=== PATIENT | male | born 1995 ===

== ENCOUNTER 2020-11-18 06:04 | Emergency (ER) | payer MEDICAID ==
[2020-11-18] MEDS ORDERED: Ondansetron 4 MG/2 ML SDV IVPUSH ONE ×2 (06:32→07:59)
[2020-11-18] MEDS ORDERED: Sodium Chloride 0.9% 1,000 ML IV ONE ×3 (06:32→12:03)
[2020-11-18] MEDS ORDERED: Insulin Regular, Human 100 Units/ML 3 ML Vial IV STA (06:33)
--- NOTE | 2020-11-18 06:40 | EDM.PDOC ---
<Hemant Gasca - Last Filed: 11/18/20 13:29> ED HPI GENERAL MEDICAL PROBLEM - General Chief Complaint: Diabetic Complaint Stated Complaint: DIABETIC COMPLAINT Time Seen by Provider: 11/18/20 06:16 - Related Data Allergies Allergy/AdvReac Type Severity Reaction Status Date / Time No Known Allergies Allergy Verified 11/18/20 06:18 Home Meds: Home Meds Insulin. 11/18/20 [History] Ondansetron [Zofran Odt] 8 mg PO Q6H PRN #8 tab.rapdis 11/18/20 [Rx] Course - Re-Assessments/Exams Free Text/Narrative Re-Assessment/Exam: 11/18/20 07:18 Assumed care at change of shift. I did going at visit with the patient briefly his nausea is improving not gone and overall he is feeling little bit better. Labs are all pending at this point. 11/18/20 07:28 Patient's pH came back at 7.18 this pattern is out of the metabolic acidosis. I did discuss this with the patient. I also asked the patient if he would stay in the hospital, and he said yes if absolutely necessary? 11/18/20 07:56 Patient's blood sugar is down to 220 we will continue to watch his potassium glucose and give fluids. We will hold off on an insulin drip at this point. 11/18/20 07:59 Patient still has some nausea. We will give another dose of Zofran I have updated him on what his blood sugars are doing. 11/18/20 09:29 His Accu-Chek is 175 11/18/20 12:25 Patient continues to improve. His lactic acid is dropped from 5.8-3.6 however his potassium went up a little bit from 4.6-4.9 we will stop the NS with 20 of K and bolus another liter of NS. Patient is resistant to staying in the hospital at this time I discussed the pros and cons but he really wants to try outpatient treatment. The patient's ketones are 4.8 still in the ketosis range but certainly at the upper end of this. 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 At this point his nausea is getting a little worse we will try him on a 8 mg Zofran ODT. 11/18/20 13:29 Patient is insistent on going home at this point he refuses last blood draw. He states he will car pick up driver some insulin and some test strips and he promises to return to the emergency room if he is not improving or certainly if he is getting worse. I will give him a prescription for Zofran. Departure - Departure Time of Disposition: 13:30 Disposition: Home, Self-Care 01 Clinical Impression: Poorly controlled type 1 diabetes mellitus, Diabetic ketoacidosis - Discharge Information Prescriptions: Ondansetron [Zofran Odt] 8 mg PO Q6H PRN #8 tab.rapdis PRN Reason: Nausea/Vomiting Instructions: Diabetic Ketoacidosis Referrals: PCP,None [Primary Care Provider] - Forms: ED Department Discharge Additional Instructions: Return to the emergency room with any questions problems or worsening symptoms. Push lots of fluids. For the next 24 hours keep your blood sugar less than 250. And then start working on tighter control. 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 You have been given a prescription for Zofran this is an antinausea medication take 1 every 6 hours as needed for nausea and vomiting it will absorb under your tongue so you do not have to worry about swallowing it. <Surjit Parker - Last Filed: 11/18/20 19:09> ED HPI GENERAL MEDICAL PROBLEM - General Source of Information: Reports: Patient, Family () History Limitations: Reports: No Limitations - History of Present Illness INITIAL COMMENTS - FREE TEXT/NARRATIVE: Mr. Hubbard is a 24-year-old gentleman with a past medical history significant for type 1 diabetes, with nausea and dry heaving after running out of his Novolin-N insulin (NPH insulin) yesterday morning. He states that he would ordinarily take Humalog and Lantus, but due to lack of insurance, he has been purchasing Novolin-N fpon-zmo-mhbtral. He states that he ordinarily takes about 30 units of NPH per day over 3 injections. He states that his Accu-Cheks are usually between 80 and 220, however, he ran out of test strips about 1 week ago, at which time his Accu-Chek was 195. Here in the ED, the patient is found to be mildly tachycardic at 104 bpm, otherwise, he is hemodynamically stable, afebrile, saturating 95% on room air. An Accu-Chek at triage was 324. Prior to this morning, the patient denies having a recent fever, chills, sore throat, ear pain, nasal or sinus congestion, cough, dyspnea, chest pain, palpitations, nausea, vomiting, constipation, diarrhea, abdominal pain, urinary symptoms, recent weight gain or weight loss, recent bloody bowel movements or black bowel movements, recent joint aches, headaches, or rashes. The patient does not have a PCP. He states that due to lack of health insurance, even if referred to a PCP, he would not be able to go. He has not received an influenza vaccine this season, and declined an offer to get one here in the ED. 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 ED EXAM GENERAL NO PERIP PULSE - Physical Exam Exam: See Below Exam Limited By: No Limitations General Appearance: Alert, WD/WN, Mild Distress (Dry heaved during my evaluation) Eye Exam: Bilateral Eye: EOMI, Normal Inspection Ears: Normal External Exam, Hearing Grossly Normal Nose: Normal Inspection Throat/Mouth: Normal Inspection, Normal Lips, Normal Voice, No Airway Compromise Head: Atraumatic, Normocephalic Neck: Normal Inspection, Full Range of Motion Respiratory/Chest: No Respiratory Distress, Lungs Clear, Normal Breath Sounds, No Accessory Muscle Use Cardiovascular: Normal Peripheral Pulses, No Edema, No Gallop, No JVD, No Murmur, No Rub, Tachycardia (regular) GI/Abdominal: Normal Bowel Sounds, Soft, Non-Tender, No Organomegaly, No Distention, No Abnormal Bruit, No Mass Back Exam: Normal Inspection, Full Range of Motion, NT Extremities: Normal Inspection, Normal Range of Motion, No Pedal Edema, Normal Capillary Refill Neurological: Alert, Oriented, Normal Cognition, No Motor/Sensory Deficits Psychiatric: Normal Affect Skin Exam: Warm, Dry, Intact, Normal Color, No Rash #1 Interpretation EKG Date: 11/18/20 Time: 06:40 Rhythm: Other (Sinus tachycardia) Rate (Beats/Min): 102 Brilliant: Normal P-Wave: Enlarged (LAE) QRS: Other (Late transition) ST-T: Normal QT: Normal Comparison: NA - No Prior EKG Course - Vital Signs Last Recorded V/S: Last Vital Signs Temp 36.2 C 11/18/20 06:15 Pulse 97 11/18/20 13:43 Resp 16 11/18/20 13:43 BP 124/57 L 11/18/20 13:43 Pulse Ox 98 11/18/20 13:43 - Orders/Labs/Meds Labs: Laboratory Tests 11/18/20 11/18/20 11/18/20 Range/Units 06:47 06:47 06:47 WBC 11.38 H (4.23-9.07) K/mm3 RBC 4.87 (4.63-6.08) M/mm3 Hgb 15.8 (13.7-17.5) gm/dl Hct 47.8 (40.1-51.0) % MCV 98.2 H (79.0-92.2) fl MCH 32.4 H (25.7-32.2) pg MCHC 33.1 (32.2-35.5) g/dl RDW Std Deviation 43.8 (35.1-43.9) fL Plt Count 306 (163-337) K/mm3 MPV 10.2 (9.4-12.3) fl Neutrophils % (Manual) 74 H (40-60) % Band Neutrophils % 0 (0-10) % Lymphocytes % (Manual) 21 (20-40) % Atypical Lymphs % 0 % Monocytes % (Manual) 4 (2-10) % Eosinophils % (Manual) 0 L (0.8-7.0) % Basophils % (Manual) 1 (0.2-1.2) Platelet Estimate Adequate RBC Morph Comment Normal Puncture Site ABG pH (7.35-7.45) ABG pCO2 (35.0-45.0) mmHg ABG pO2 (80.0-100.0) mmHg ABG HCO3 (22.0-26.0) meq/L ABG O2 Saturation (96.0-97.0) % ABG Base Excess (-2-2.0) Jona Test A-a Gradient mmHg O2 Delivery Device FiO2 (21.00-100.00) % Sodium 138 (136-145) mEq/L Potassium 4.6 (3.5-5.1) mEq/L Chloride 95 L (98-107) mEq/L Carbon Dioxide 17 L (21-32) mEq/L Anion Gap 30.6 H (5-15) BUN 18 (7-18) mg/dL Creatinine 1.3 (0.7-1.3) mg/dL Est Cr Clr Drug Dosing 80.51 mL/min Estimated GFR (MDRD) > 60 (>60) mL/min BUN/Creatinine Ratio 13.8 L (14-18) Glucose 340 H (74-106) mg/dL POC Glucose (70-105) mg/dL Lactic Acid 5.8 H* (0.4-2.0) mmol/L Calcium 9.2 (8.5-10.1) mg/dL Magnesium 1.9 (1.8-2.4) mg/dl Total Bilirubin 0.4 (0.2-1.0) mg/dL AST 66 H (15-37) U/L ALT 55 (16-63) U/L Alkaline Phosphatase 130 H (46-116) U/L Total Protein 8.7 H (6.4-8.2) g/dl Albumin 5.2 H (3.4-5.0) g/dl Globulin 3.5 gm/dL Albumin/Globulin Ratio 1.5 (1-2) Urine Color (Yellow) Urine Appearance (Clear) Urine pH (5.0-8.0) Ur Specific [place] (1.005-1.030) Urine Protein (Negative) Urine Glucose (UA) (Negative) Urine Ketones (Negative) Urine Occult Blood (Negative) Urine Nitrite (Negative) Urine Bilirubin (Negative) Urine Urobilinogen (0.2-1.0) Ur Leukocyte Esterase (Negative) Urine RBC (0-5) /hpf Urine WBC (0-5) /hpf Ur Epithelial Cells (0-5) /hpf Urine Bacteria (FEW) /hpf Urine Mucus (FEW) /hpf Ketones (0.0-0.3) mM 11/18/20 11/18/2021 Range/Units 06:47 07:05 07:53 WBC (4.23-9.07) K/mm3 RBC (4.63-6.08) M/mm3 Hgb (13.7-17.5) gm/dl Hct (40.1-51.0) % MCV (79.0-92.2) fl MCH (25.7-32.2) pg MCHC (32.2-35.5) g/dl RDW Std Deviation (35.1-43.9) fL Plt Count (163-337) K/mm3 MPV (9.4-12.3) fl Neutrophils % (Manual) (40-60) % Band Neutrophils % (0-10) % Lymphocytes % (Manual) (20-40) % Atypical Lymphs % % Monocytes % (Manual) (2-10) % Eosinophils % (Manual) (0.8-7.0) % Basophils % (Manual) (0.2-1.2) Platelet Estimate RBC Morph Comment Puncture Site Rt radial ABG pH 7.18 L* (7.35-7.45) ABG pCO2 34.9 L (35.0-45.0) mmHg ABG pO2 95.0 (80.0-100.0) mmHg ABG HCO3 12.5 L (22.0-26.0) meq/L ABG O2 Saturation 94.2 L (96.0-97.0) % ABG Base Excess -14.9 L (-2-2.0) Jona Test Positive A-a Gradient 11 mmHg O2 Delivery Device Room air FiO2 21.00 (21.00-100.00) % Sodium (136-145) mEq/L Potassium (3.5-5.1) mEq/L Chloride (98-107) mEq/L Carbon Dioxide (21-32) mEq/L Anion Gap (5-15) BUN (7-18) mg/dL Creatinine (0.7-1.3) mg/dL Est Cr Clr Drug Dosing mL/min Estimated GFR (MDRD) (>60) mL/min BUN/Creatinine Ratio (14-18) Glucose (74-106) mg/dL POC Glucose 221 H (70-105) mg/dL Lactic Acid (0.4-2.0) mmol/L Calcium (8.5-10.1) mg/dL Magnesium (1.8-2.4) mg/dl Total Bilirubin (0.2-1.0) mg/dL AST (15-37) U/L ALT (16-63) U/L Alkaline Phosphatase (46-116) U/L Total Protein (6.4-8.2) g/dl Albumin (3.4-5.0) g/dl Globulin gm/dL Albumin/Globulin Ratio (1-2) Urine Color (Yellow) Urine Appearance (Clear) Urine pH (5.0-8.0) Ur Specific [place] (1.005-1.030) Urine Protein (Negative) Urine Glucose (UA) (Negative) Urine Ketones (Negative) Urine Occult Blood (Negative) Urine Nitrite (Negative) Urine Bilirubin (Negative) Urine Urobilinogen (0.2-1.0) Ur Leukocyte Esterase (Negative) Urine RBC (0-5) /hpf Urine WBC (0-5) /hpf Ur Epithelial Cells (0-5) /hpf Urine Bacteria (FEW) /hpf Urine Mucus (FEW) /hpf Ketones 4.85 (0.0-0.3) mM 11/18/20 11/18/20 11/18/20 Range/Units 09:18 10:04 10:04 WBC (4.23-9.07) K/mm3 RBC (4.63-6.08) M/mm3 Hgb (13.7-17.5) gm/dl Hct (40.1-51.0) % MCV (79.0-92.2) fl MCH (25.7-32.2) pg MCHC (32.2-35.5) g/dl RDW Std Deviation (35.1-43.9) fL Plt Count (163-337) K/mm3 MPV (9.4-12.3) fl Neutrophils % (Manual) (40-60) % Band Neutrophils % (0-10) % Lymphocytes % (Manual) (20-40) % Atypical Lymphs % % Monocytes % (Manual) (2-10) % Eosinophils % (Manual) (0.8-7.0) % Basophils % (Manual) (0.2-1.2) Platelet Estimate RBC Morph Comment Puncture Site ABG pH (7.35-7.45) ABG pCO2 (35.0-45.0) mmHg ABG pO2 (80.0-100.0) mmHg ABG HCO3 (22.0-26.0) meq/L ABG O2 Saturation (96.0-97.0) % ABG Base Excess (-2-2.0) Jona Test A-a Gradient mmHg O2 Delivery Device FiO2 (21.00-100.00) % Sodium (136-145) mEq/L Potassium 4.9 (3.5-5.1) mEq/L Chloride (98-107) mEq/L Carbon Dioxide (21-32) mEq/L Anion Gap (5-15) BUN (7-18) mg/dL Creatinine (0.7-1.3) mg/dL Est Cr Clr Drug Dosing mL/min Estimated GFR (MDRD) (>60) mL/min BUN/Creatinine Ratio (14-18) Glucose (74-106) mg/dL POC Glucose (70-105) mg/dL Lactic Acid 3.6 H* (0.4-2.0) mmol/L Calcium (8.5-10.1) mg/dL Magnesium (1.8-2.4) mg/dl Total Bilirubin (0.2-1.0) mg/dL AST (15-37) U/L ALT (16-63) U/L Alkaline Phosphatase (46-116) U/L Total Protein (6.4-8.2) g/dl Albumin (3.4-5.0) g/dl Globulin gm/dL Albumin/Globulin Ratio (1-2) Urine Color Yellow (Yellow) Urine Appearance Clear (Clear) Urine pH 5.5 (5.0-8.0) Ur Specific [place] > or = 1.030 (1.005-1.030) Urine Protein 1+ H (Negative) Urine Glucose (UA) 2+ H (Negative) Urine Ketones 3+ H (Negative) Urine Occult Blood Trace-lysed H (Negative) Urine Nitrite Negative (Negative) Urine Bilirubin Negative (Negative) Urine Urobilinogen 0.2 (0.2-1.0) Ur Leukocyte Esterase Negative (Negative) Urine RBC 0-5 (0-5) /hpf Urine WBC Not seen (0-5) /hpf Ur Epithelial Cells 0-5 (0-5) /hpf Urine Bacteria Not seen (FEW) /hpf Urine Mucus Not seen (FEW) /hpf Ketones (0.0-0.3) mM Meds: Medications Discontinued Medications Generic Name Dose Route Start Last Admin Trade Name Kee PRN Reason Stop Dose Admin Sodium Chloride 1,000 mls @ 999 mls/hr 11/18/20 06:32 11/18/20 06:45 Normal Saline IV 11/18/20 07:32 999 mls/hr ONETIME ONE Administration Sodium Chloride 1,000 mls @ 999 mls/hr 11/18/20 07:41 11/18/20 07:53 Normal Saline IV 11/18/20 08:41 999 mls/hr ONETIME ONE Administration Potassium Chloride/Sodium Chloride 1,000 mls @ 250 mls/hr 11/18/20 09:30 11/18/20 09:56 Normal Saline With 20 Meq Kcl IV 250 mls/hr ASDIRECTED JOSE Administration Sodium Chloride 1,000 mls @ 999 mls/hr 11/18/20 12:03 11/18/20 12:11 Normal Saline IV 11/18/20 13:03 999 mls/hr ONETIME ONE Administration Insulin Human Regular 10 unit 11/18/20 06:33 11/18/20 06:53 Humulin R IV 11/18/20 06:34 10 unit ONETIME STA Administration Ondansetron HCl 4 mg 11/18/20 06:32 11/18/20 06:45 Zofran IVPUSH 11/18/20 06:33 4 mg ONETIME ONE Administration Ondansetron HCl 4 mg 11/18/20 07:59 11/18/20 08:34 Zofran IVPUSH 11/18/20 08:00 4 mg ONETIME ONE Administration Ondansetron HCl 8 mg 11/18/20 12:06 11/18/20 12:11 Zofran Odt PO 11/18/20 12:07 8 mg ONETIME ONE Administration - Re-Assessments/Exams Free Text/Narrative Re-Assessment/Exam: 11/18/20 06:36 As above, the patient, who has type 1 diabetes, ran out of his NPH yesterday morning, developed nausea with dry heaving this morning, and is found to have a blood glucose of 324 here in the ED. He is tachycardic but afebrile, and denies having any other symptoms suggestive of an infection. I have ordered a work-up that includes orthostatics, several blood tests, an ABG, a urinalysis, and an ECG. In the meantime, the patient will be given a bolus of IV fluid, 10 units of regular insulin, and IV Zofran. 11/18/20 06:50 Notified by Coco PAGE that the patient told her that he had not consented to tests being ordered, that by ordering tests he felt we were ripping him off, that he refused the ABG being drawn, and that he wanted the charge for his ECG, already obtained, to be reversed. I went and talked to he and his . He stated that I had only told him that I was going to give him IV fluid and insulin, and did not tell him I was going to order any tests. That is not correct. I told the patient, as I do every patient, that my plan of care was to run some tests, give him IV fluid, insulin, and anti-nausea medicine to see if we can get his blood sugar under control and get him feeling better. I explained that the role of the Emergency Department is to determine if a patient's presentation constitutes a medical emergency, and with his presentation, having type 1 diabetes with hyperglycemia and vomiting, I need to determine if he has DKA or not. I told him that he is free to refuse any and all tests, but that I cannot be expected to make an accurate diagnosis without tests being performed. I told him that someone from lab would come in to draw his blood, and that he could determine at that time if he wanted to refuse testing or not. 11/18/20 07:[address] Gasca, and care of the patient turned over to him at this time, for change of shift. Sepsis Event Note (ED) - Evaluation Sepsis Screening Result: No Definite Risk - Focused Exam Vital Signs: Vital Signs Pulse Resp BP Pulse Ox 11/18/20 13:43 97 16 124/57 L 98
[2020-11-18] MEDS ORDERED: NS + KCl 20mEq/L 1,000 ML IV SCH (09:30)
[2020-11-18] MEDS ORDERED: Ondansetron 4 MG Tab.DIS PO ONE (12:06)
== END 2020-11-18 13:37 | disposition home or self-care (01) ==
LOC: JD.ED 06:04
DX: E10.10 Type 1 diabetes mellitus with ketoacidosis without coma (principal); Z72.0 Tobacco use
CPT/HCPCS: 36415; 36600; 80053; 81001; 82009; 82803; 82962; 83605; 83735; 84132; 85007; 85027; 93005; 96374; 96376; 99285; A9270; J1815; J2405; J3480; J7030; 93010; 99284

== ENCOUNTER 2020-11-19 06:27 | Inpatient (IN) | payer MEDICAID ==
[2020-11-19] MEDS ORDERED: Sodium Chloride 0.9% 10 ML Syringe FLUSH PRN (07:09)
[2020-11-19] MEDS ORDERED: Ondansetron 4 MG/2 ML SDV IVPUSH ONE (07:09)
[2020-11-19] MEDS ORDERED: HYDROmorphone 0.5 MG/0.5 ML Syringe IVPUSH ONE (07:11)
[2020-11-19] MEDS ORDERED: Sodium Chloride 0.9% 1,000 ML IV SCH (07:15)
[2020-11-19] MEDS ORDERED: Lactated Ringers 1,000 ML IV ONE ×2 (08:26→10:24)
--- NOTE | 2020-11-19 08:29 | EDM.PDOC ---
ED HPI GENERAL MEDICAL PROBLEM - General Chief Complaint: Diabetic Complaint Stated Complaint: DIABETIC COMPLAINT Time Seen by Provider: 11/19/20 06:50 Source of Information: Reports: Patient History Limitations: Reports: No Limitations - History of Present Illness INITIAL COMMENTS - FREE TEXT/NARRATIVE: The patient presents with nausea, vomiting and abdominal pain. He has type I diabetes and his is on insulin. He was here yesterday for the same and his pH was low at 7.18 and his blood sugar was high. He was in DKA. He was given insulin and hydration and felt good. He went home and last night he started having nausea, vomiting and abdominal cramps. His blood sugar when he came in was 361. He took a total of 15 units of fast acting insulin this morning. He has no fever, chills, cough, chest pain or shortness of breath. He said that last time he was in DKA was years ago. He has no dysuria. Onset: Gradual Duration: Day(s): Location: Reports: Abdomen Quality: Reports: Other (cramping) Severity: Moderate Improves with: Reports: None Worsens with: Reports: None Associated Symptoms: Reports: Nausea/Vomiting. Denies: Chest Pain, Cough, Fever/Chills, Headaches, Shortness of Breath Upper Abdomen Pain Score (Numeric/FACES): 8 - Related Data Allergies Allergy/AdvReac Type Severity Reaction Status Date / Time No Known Allergies Allergy Verified 11/19/20 06:47 Home Meds: Home Meds Insulin. 11/18/20 [History] Ondansetron [Zofran Odt] 8 mg PO Q6H PRN #8 tab.rapdis 11/18/20 [Rx] Past Medical History Endocrine/Metabolic History: Reports: Diabetes, Type I - Infectious Disease History Infectious Disease History: Reports: Novel Coronavirus Social & Family History - Family History Family Medical History: No Pertinent Family History - Tobacco Use Tobacco Use Status *Q: Current Every Day Tobacco User Years of Tobacco use: 6 Packs/Tins Daily: 0.2 - Caffeine Use Caffeine Use: Reports: Soda - Recreational Drug Use Recreational Drug Use: No - Living Situation & Occupation Living situation: Reports: , with Spouse 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) ED ROS GENERAL - Review of Systems Review Of Systems: See Below Constitutional: Reports: No Symptoms HEENT: Reports: No Symptoms Respiratory: Reports: No Symptoms Cardiovascular: Reports: No Symptoms Endocrine: Reports: No Symptoms GI/Abdominal: Reports: Abdominal Pain, Nausea, Vomiting : Reports: No Symptoms Musculoskeletal: Reports: No Symptoms ED EXAM GENERAL NO PERIP PULSE - Physical Exam Exam: See Below Exam Limited By: No Limitations General Appearance: Alert, No Apparent Distress Ears: Normal External Exam Nose: Normal Inspection Head: Atraumatic, Normocephalic Neck: Normal Inspection Respiratory/Chest: No Respiratory Distress, Lungs Clear, Normal Breath Sounds Cardiovascular: Regular Rate, Rhythm, No Edema, No Murmur GI/Abdominal: Soft, No Organomegaly, No Mass, Tender (Mild generalized) Back Exam: Normal Inspection Extremities: Normal Inspection Neurological: Alert, Oriented, No Motor/Sensory Deficits Course - Vital Signs Last Recorded V/S: Last Vital Signs Temp 98.5 F 11/19/20 06:42 Pulse 126 H 11/19/20 06:42 Resp 20 11/19/20 06:42 BP 160/92 H 11/19/20 06:42 Pulse Ox 100 11/19/20 06:42 - Orders/Labs/Meds Orders: Active Orders 24 hr Category Date Time Status Admission Status [Patient Status] [ADT] Routine ADT 11/19/20 09:32 Ordered Cardiac Monitoring [RC] . DIRECTED Care 11/19/20 07:09 Active Peripheral IV Care [RC] . DIRECTED Care 11/19/20 07:10 Active CBC WITH AUTO DIFF [HEME] Stat Lab 11/19/20 07:36 Results CORONAVIRUS COVID-19 DONTAE [MOLEC] Stat Lab 11/19/20 09:00 Received Sodium Chloride 0.9% [Normal Saline] 1,000 ml Med 11/19/20 07:15 Active IV .BOLUS Sodium Chloride 0.9% [Saline Flush] Med 11/19/20 07:09 Active 10 ml FLUSH ASDIRECTED PRN ED Antiemetic Medication Reflex [OM.PC] Stat Oth 11/19/20 07:10 Ordered Peripheral IV Insertion Adult [OM.PC] Stat Oth 11/19/20 07:09 Ordered Medication Orders Sodium Chloride (Normal Saline) 1,000 mls @ 1,000 mls/hr IV .BOLUS JOSE Last Admin: 11/19/20 07:41 Dose: 1,000 mls/hr Documented by: MATLBIL Sodium Chloride (Saline Flush) 10 ml FLUSH ASDIRECTED PRN PRN Reason: Keep Vein Open Last Admin: 11/19/20 07:57 Dose: 10 ml Documented by: ELENI Labs: Laboratory Tests 11/19/20 11/19/20 11/19/20 Range/Units 06:39 07:36 07:36 WBC 22.76 H (4.23-9.07) K/mm3 RBC 4.86 (4.63-6.08) M/mm3 Hgb 15.9 (13.7-17.5) gm/dl Hct 49.6 (40.1-51.0) % MCV 102.1 H D (79.0-92.2) fl MCH 32.7 H (25.7-32.2) pg MCHC 32.1 L (32.2-35.5) g/dl RDW Std Deviation 46.6 H (35.1-43.9) fL Plt Count 325 (163-337) K/mm3 MPV 9.8 (9.4-12.3) fl Neut % (Auto) 88.5 H (34.0-67.9) % Lymph % (Auto) 4.8 L (21.8-53.1) % [place] % (Auto) 6.3 (5.3-12.2) % Eos % (Auto) 0 L (0.8-7.0) Baso % (Auto) 0.0 L (0.1-1.2) % Neut # (Auto) 20.12 H (1.78-5.38) K/mm3 Lymph # (Auto) 1.09 L (1.32-3.57) K/mm3 [place] # (Auto) 1.44 H (0.30-0.82) K/mm3 Eos # (Auto) 0.00 L (0.04-0.54) K/mm3 Baso # (Auto) 0.01 (0.01-0.08) K/mm3 VBG pH (7.30-7.40) Sodium 133 L (136-145) mEq/L Potassium 5.1 (3.5-5.1) mEq/L Chloride 95 L (98-107) mEq/L Carbon Dioxide 10 L (21-32) mEq/L Anion Gap 33.1 H (5-15) BUN 17 (7-18) mg/dL Creatinine 1.7 H (0.7-1.3) mg/dL Est Cr Clr Drug Dosing 61.56 mL/min Estimated GFR (MDRD) 49 (>60) mL/min BUN/Creatinine Ratio 10.0 L (14-18) Glucose 293 H (74-106) mg/dL POC Glucose 361 H (70-105) mg/dL Serum Osmolality 313 H (280-300) mosm/kg Calcium 8.5 (8.5-10.1) mg/dL Total Bilirubin 0.6 (0.2-1.0) mg/dL AST 38 H (15-37) U/L ALT 57 (16-63) U/L Alkaline Phosphatase 132 H (46-116) U/L C-Reactive Protein < 0.2 (<1.0) mg/dL Total Protein 9.0 H (6.4-8.2) g/dl Albumin 5.0 (3.4-5.0) g/dl Globulin 4.0 gm/dL Albumin/Globulin Ratio 1.3 (1-2) Lipase 41 L (73-393) U/L Ketones (0.0-0.3) mM 11/19/20 11/19/20 11/19/20 Range/Units 07:36 07:45 07:49 WBC (4.23-9.07) K/mm3 RBC (4.63-6.08) M/mm3 Hgb (13.7-17.5) gm/dl Hct (40.1-51.0) % MCV (79.0-92.2) fl MCH (25.7-32.2) pg MCHC (32.2-35.5) g/dl RDW Std Deviation (35.1-43.9) fL Plt Count (163-337) K/mm3 MPV (9.4-12.3) fl Neut % (Auto) (34.0-67.9) % Lymph % (Auto) (21.8-53.1) % [place] % (Auto) (5.3-12.2) % Eos % (Auto) (0.8-7.0) Baso % (Auto) (0.1-1.2) % Neut # (Auto) (1.78-5.38) K/mm3 Lymph # (Auto) (1.32-3.57) K/mm3 [place] # (Auto) (0.30-0.82) K/mm3 Eos # (Auto) (0.04-0.54) K/mm3 Baso # (Auto) (0.01-0.08) K/mm3 VBG pH 7.01 L (7.30-7.40) Sodium (136-145) mEq/L Potassium (3.5-5.1) mEq/L Chloride (98-107) mEq/L Carbon Dioxide (21-32) mEq/L Anion Gap (5-15) BUN (7-18) mg/dL Creatinine (0.7-1.3) mg/dL Est Cr Clr Drug Dosing mL/min Estimated GFR (MDRD) (>60) mL/min BUN/Creatinine Ratio (14-18) Glucose (74-106) mg/dL POC Glucose 284 H (70-105) mg/dL Serum Osmolality (280-300) mosm/kg Calcium (8.5-10.1) mg/dL Total Bilirubin (0.2-1.0) mg/dL AST (15-37) U/L ALT (16-63) U/L Alkaline Phosphatase (46-116) U/L C-Reactive Protein (<1.0) mg/dL Total Protein (6.4-8.2) g/dl Albumin (3.4-5.0) g/dl Globulin gm/dL Albumin/Globulin Ratio (1-2) Lipase (73-393) U/L Ketones 8.42 (0.0-0.3) mM Meds: Medications Generic Name Dose Route Start Last Admin Trade Name Freq PRN Reason Stop Dose Admin Sodium Chloride 1,000 mls @ 1,000 mls/hr 11/19/20 07:15 11/19/20 07:41 Normal Saline IV 1,000 mls/hr .BOLUS JOSE Administration Sodium Chloride 10 ml 11/19/20 07:09 11/19/20 07:57 Saline Flush FLUSH 10 ml ASDIRECTED PRN Administration Keep Vein Open Discontinued Medications Generic Name Dose Route Start Last Admin Trade Name Freq PRN Reason Stop Dose Admin Hydromorphone HCl 0.5 mg 11/19/20 07:11 11/19/20 07:41 Dilaudid IVPUSH 11/19/20 07:12 0.5 mg ONETIME ONE Administration Lactated Ringer's 1,000 mls @ 1,000 mls/hr 11/19/20 08:26 11/19/20 08:43 Ringers, Lactated IV 11/19/20 09:25 1,000 mls/hr .BOLUS ONE Administration Metoclopramide HCl 10 mg 11/19/20 08:53 11/19/20 08:57 Reglan IVPUSH 11/19/20 08:54 10 mg ONETIME ONE Administration Ondansetron HCl 4 mg 11/19/20 07:09 11/19/20 07:39 Zofran IVPUSH 11/19/20 07:10 4 mg ONETIME ONE Administration - Re-Assessments/Exams Free Text/Narrative Re-Assessment/Exam: 11/19/20 08:35 I ordered an IV NS 1L bolus, zofran 4mg IV, dilaudid 0.5mg IV, labs, venous pH. His WBC was elevated at 22.76. Yesterday it was 11.78. His pH was even lower at 7.01 down from 7.18. His Na was lower at 133. His CO2 was low at 10. His anion gap is elevated at 33.1. His creatinine is elevated at 1.7. His blood sugar is elevated at 293. His AST was elevated at 38. His alk phos was e levated at 137. His CRP is negative. His lipase is negative. His ketones were elevated at 4.85. I have ordered another liter of LR. 11/19/20 08:54 He is still nauseated. I ordered reglan 10mg IV. I feel he needs to be admitted. He has DKA. I have ordered a COVID 19 swab. 11/19/20 09:33 His ketones are 8.42. I talked with Dr Valverde and he agreed to the admission. Departure - Departure Time of Disposition: 09:35 Disposition: Admitted As Inpatient 64 Condition: Serious Clinical Impression: Diabetic ketoacidosis Qualifiers: Diabetes mellitus type: type 1 Diabetes mellitus complication detail: without coma Qualified Code(s): E10.10 - Type 1 diabetes mellitus with ketoacidosis without coma Nausea & vomiting Qualifiers: Vomiting type: unspecified Vomiting Intractability: non-intractable Qualified Code(s): R11.2 - Nausea with vomiting, unspecified - Discharge Information Referrals: PCP,None [Primary Care Provider] - Forms: ED Department Discharge Sepsis Event Note (ED) - Evaluation Sepsis Screening Result: No Definite Risk - Focused Exam Vital Signs: Vital Signs Temp Pulse Resp BP Pulse Ox 11/19/20 06:42 98.5 F 126 H 20 160/92 H 100 - My Orders Last 24 Hours: My Active Orders 11/19/20 07:09 Cardiac Monitoring [RC] . DIRECTED Sodium Chloride 0.9% [Saline Flush] 10 ml FLUSH ASDIRECTED PRN Peripheral IV Insertion Adult [OM.PC] Stat 11/19/20 07:10 Peripheral IV Care [RC] . DIRECTED ED Antiemetic Medication Reflex [OM.PC] Stat 11/19/20 07:15 Sodium Chloride 0.9% [Normal Saline] 1,000 ml IV .BOLUS 11/19/20 07:36 CBC WITH AUTO DIFF [HEME] Stat 11/19/20 09:00 CORONAVIRUS COVID-19 DONTAE [MOLEC] Stat 11/19/20 09:32 Admission Status [Patient Status] [ADT] Routine - Assessment/Plan Last 24 Hours: My Active Orders 11/19/20 07:09 Cardiac Monitoring [RC] . DIRECTED Sodium Chloride 0.9% [Saline Flush] 10 ml FLUSH ASDIRECTED PRN Peripheral IV Insertion Adult [OM.PC] Stat 11/19/20 07:10 Peripheral IV Care [RC] . DIRECTED ED Antiemetic Medication Reflex [OM.PC] Stat 11/19/20 07:15 Sodium Chloride 0.9% [Normal Saline] 1,000 ml IV .BOLUS 11/19/20 07:36 CBC WITH AUTO DIFF [HEME] Stat 11/19/20 09:00 CORONAVIRUS COVID-19 DONTAE [MOLEC] Stat 11/19/20 09:32 Admission Status [Patient Status] [ADT] Routine
[2020-11-19] MEDS ORDERED: Metoclopramide 10 MG/2 ML SDV IVPUSH ONE (08:53)
[2020-11-19] MEDS ORDERED: Acetaminophen 325 MG Tab PO PRN (10:20)
[2020-11-19] MEDS ORDERED: Ondansetron 4 MG/2 ML SDV IV PRN (10:20)
[2020-11-19] MEDS ORDERED: Sodium Chloride 0.9% 1,000 ML IV ONE ×2 (10:32→11:58)
[2020-11-19] MEDS: Nicotine 14 MG/24 Hr Patch TRDERM SCH (10:47)
[2020-11-19 11:21] LABS: HEMOGLOBIN A1C 8.5 %
[2020-11-19] MEDS ORDERED: Dextrose 5% in Water 1,000 ML IV SCH (11:30)
--- NOTE | 2020-11-19 12:45 | PCM.HP.2 ---
H&P History of Present Illness - General Date of Service: 11/19/20 Admit Problem/Dx: Admission Diagnosis/Problem Admission Diagnosis/Problem Diabetic ketoacidosis Source of Information: Patient, Old Records, Provider, RN Notes Reviewed, Signi ficant Other History Limitations: Reports: No Limitations - History of Present Illness Initial Comments - Free Text/Narative: This is a 24 yo white male with past medical hx/o DM 1 and Nicotine Dependence who presented to ED with complaints of abdominal pain associated with nausea and vomiting that started yesterday. He states that he ran out of his insulin (mixed 70/30). His last insulin shot was administered Thursday night. His last DKA was 8 years ago. His most recent A1C was around 8. He was originally from [place] but just recently moved here in [place]. He states he has not had a PCP that follows him routine. He usually goes to the walk in clinic for insulin refills and if or when he needs routine medical care. He denies having fever or chills. No signs or symptoms of URI. His initial work up in ED shows a CBC remarkable for WBC of 22.76, MCV of 102.1, MCHC of 32.1, and Neutrophils of 88.5%. His chemistry is significant for Na of 133, Cl of 95, Co2 of 10, AG of 33.1, Cr of 1.7, BS of 294, A1C of 8.5, Serum Osm of 313, AST of 38, Alk Phos of 132, and Lipase of 41. His serum ketones level is 8.42. His UA is negative for UTI. Patient received initial treatment in ED before coming in the unit for further management of DKA. Upper Abdomen Pain Score (Numeric/FACES): 8 - Related Data Allergies/Adverse Reactions: Allergies Allergy/AdvReac Type Severity Reaction Status Date / Time No Known Allergies Allergy Verified 11/19/20 10:34 Home Medications: Home Meds Insulin. 11/18/20 [History] Ondansetron [Zofran Odt] 8 mg PO Q6H PRN #8 tab.rapdis 11/18/20 [Rx] Past Medical History Endocrine/Metabolic History: Reports: Diabetes, Type I, Obesity/BMI 30+ - Infectious Disease History Infectious Disease History: Reports: Novel Coronavirus Social & Family History - Family History Family Medical History: No Pertinent Family History - Tobacco Use Tobacco Use Status *Q: Current Every Day Tobacco User Years of Tobacco use: 5 Packs/Tins Daily: 0.5 Used Tobacco, but Quit: No Second Hand Smoke Exposure: No - Caffeine Use Caffeine Use: Reports: None - Alcohol Use Days Per Week of Alcohol Use: 2 Number of Drinks Per Day: 4 Total Drinks Per Week: 8 - Recreational Drug Use Recreational Drug Use: No - Living Situation & Occupation Living situation: Reports: , with Spouse 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 Denies: Fever, Chills, Malaise, Fatigue HEENT: Denies: Contact Lenses Pulmonary: Denies: Shortness of Breath Cardiovascular: Denies: Chest Pain Gastrointestinal: Reports: Abdominal Pain, Nausea, Vomiting Genitourinary: Reports: Frequency Musculoskeletal: Denies: Joint Pain Skin: Denies: Bruising, Pruritis, Rash Psychiatric: Reports: Anxiety. Denies: Confusion Neurological: Denies: Confusion, Headache, Seizure, Weakness, Gait Disturbance Hematologic/Lymphatic: Reports: No Symptoms Immunologic: Reports: No Symptoms Exam - Exam Exam: See Below - Vital Signs Vital Signs: Last Vital Signs Temp 36.8 C 11/19/20 12:00 Pulse 108 H 11/19/20 12:00 Resp 20 11/19/20 12:00 BP 140/79 11/19/20 12:00 Pulse Ox 100 11/19/20 12:00 Weight: 92.896 kg - Exam General: Alert, Oriented, Cooperative, Mild Distress HEENT: Conjunctiva Clear, EACs Clear, EOMI, Hearing Intact, Nares Patent, Normal Nasal Septum, Posterior Pharynx Clear, Pupils Equal, Pupils Reactive, TMs Clear. No: Mucosa Moist & [place] Neck: Supple, Trachea Midline Lungs: Clear to Auscultation, Normal Respiratory Effort, Other (tachypneic) Cardiovascular: Tachycardia GI/Abdominal Exam: Normal Bowel Sounds, Soft, No Organomegaly, No Distention, No Abnormal Bruit, Tender (mid-abdomen) (Male) Exam: Deferred Rectal (Males) Exam: Deferred Back Exam: Normal Inspection, Decreased Range of Motion Extremities: Normal Inspection, Normal Range of Motion, Non-Tender, No Pedal Edema, Normal Capillary Refill Peripheral Pulses: 2+: Dorsalis Pedis (L), Dorsalis Pedis (R) Skin: Warm, Dry, Intact, Other (noted for skin tattoos) Neuro Extensive - Mental Status: Oriented x3, Normal Cognition, Memory Intact Neuro Extensive - Motor, Sensory, Reflexes: CN II-XII Intact, Normal Gait Psychiatric: Alert, Normal Affect, Normal Mood - Patient Data Lab Results Last 24 hrs: Laboratory Results - last 24 hr 11/19/20 11/19/20 11/19/20 Range/Units 06:39 07:36 07:36 WBC 22.76 H (4.23-9.07) K/mm3 RBC 4.86 (4.63-6.08) M/mm3 Hgb 15.9 (13.7-17.5) gm/dl Hct 49.6 (40.1-51.0) % MCV 102.1 H D (79.0-92.2) fl MCH 32.7 H (25.7-32.2) pg MCHC 32.1 L (32.2-35.5) g/dl RDW Std Deviation 46.6 H (35.1-43.9) fL Plt Count 325 (163-337) K/mm3 MPV 9.8 (9.4-12.3) fl Neut % (Auto) 88.5 H (34.0-67.9) % Lymph % (Auto) 4.8 L (21.8-53.1) % [place] % (Auto) 6.3 (5.3-12.2) % Eos % (Auto) 0 L (0.8-7.0) Baso % (Auto) 0.0 L (0.1-1.2) % Neut # (Auto) 20.12 H (1.78-5.38) K/mm3 Lymph # (Auto) 1.09 L (1.32-3.57) K/mm3 [place] # (Auto) 1.44 H (0.30-0.82) K/mm3 Eos # (Auto) 0.00 L (0.04-0.54) K/mm3 Baso # (Auto) 0.01 (0.01-0.08) K/mm3 Manual Slide Review Abnormal smear VBG pH (7.30-7.40) Sodium 133 L (136-145) mEq/L Potassium 5.1 (3.5-5.1) mEq/L Chloride 95 L (98-107) mEq/L Carbon Dioxide 10 L (21-32) mEq/L Anion Gap 33.1 H (5-15) BUN 17 (7-18) mg/dL Creatinine 1.7 H (0.7-1.3) mg/dL Est Cr Clr Drug Dosing 61.56 mL/min Estimated GFR (MDRD) 49 (>60) mL/min BUN/Creatinine Ratio 10.0 L (14-18) Glucose 293 H (74-106) mg/dL POC Glucose 361 H (70-105) mg/dL Hemoglobin A1c ( - 5.6) % Serum Osmolality 313 H (280-300) mosm/kg Calcium 8.5 (8.5-10.1) mg/dL Total Bilirubin 0.6 (0.2-1.0) mg/dL AST 38 H (15-37) U/L ALT 57 (16-63) U/L Alkaline Phosphatase 132 H (46-116) U/L C-Reactive Protein < 0.2 (<1.0) mg/dL Total Protein 9.0 H (6.4-8.2) g/dl Albumin 5.0 (3.4-5.0) g/dl Globulin 4.0 gm/dL Albumin/Globulin Ratio 1.3 (1-2) Lipase 41 L (73-393) U/L Ketones (0.0-0.3) mM SARS-CoV-2 RNA (DONTAE) (NEGATIVE) 11/19/20 11/19/20 11/19/20 Range/Units 07:36 07:36 07:45 WBC (4.23-9.07) K/mm3 RBC (4.63-6.08) M/mm3 Hgb (13.7-17.5) gm/dl Hct (40.1-51.0) % MCV (79.0-92.2) fl MCH (25.7-32.2) pg MCHC (32.2-35.5) g/dl RDW Std Deviation (35.1-43.9) fL Plt Count (163-337) K/mm3 MPV (9.4-12.3) fl Neut % (Auto) (34.0-67.9) % Lymph % (Auto) (21.8-53.1) % [place] % (Auto) (5.3-12.2) % Eos % (Auto) (0.8-7.0) Baso % (Auto) (0.1-1.2) % Neut # (Auto) (1.78-5.38) K/mm3 Lymph # (Auto) (1.32-3.57) K/mm3 [place] # (Auto) (0.30-0.82) K/mm3 Eos # (Auto) (0.04-0.54) K/mm3 Baso # (Auto) (0.01-0.08) K/mm3 Manual Slide Review VBG pH 7.01 L (7.30-7.40) Sodium (136-145) mEq/L Potassium (3.5-5.1) mEq/L Chloride (98-107) mEq/L Carbon Dioxide (21-32) mEq/L Anion Gap (5-15) BUN (7-18) mg/dL Creatinine (0.7-1.3) mg/dL Est Cr Clr Drug Dosing mL/min Estimated GFR (MDRD) (>60) mL/min BUN/Creatinine Ratio (14-18) Glucose (74-106) mg/dL POC Glucose (70-105) mg/dL Hemoglobin A1c 8.5 H ( - 5.6) % Serum Osmolality (280-300) mosm/kg Calcium (8.5-10.1) mg/dL Total Bilirubin (0.2-1.0) mg/dL AST (15-37) U/L ALT (16-63) U/L Alkaline Phosphatase (46-116) U/L C-Reactive Protein (<1.0) mg/dL Total Protein (6.4-8.2) g/dl Albumin (3.4-5.0) g/dl Globulin gm/dL Albumin/Globulin Ratio (1-2) Lipase (73-393) U/L Ketones 8.42 (0.0-0.3) mM SARS-CoV-2 RNA (DONTAE) (NEGATIVE) 11/19/20 11/19/20 11/19/20 Range/Units 07:49 09:00 11:14 WBC (4.23-9.07) K/mm3 RBC (4.63-6.08) M/mm3 Hgb (13.7-17.5) gm/dl Hct (40.1-51.0) % MCV (79.0-92.2) fl MCH (25.7-32.2) pg MCHC (32.2-35.5) g/dl RDW Std Deviation (35.1-43.9) fL Plt Count (163-337) K/mm3 MPV (9.4-12.3) fl Neut % (Auto) (34.0-67.9) % Lymph % (Auto) (21.8-53.1) % [place] % (Auto) (5.3-12.2) % Eos % (Auto) (0.8-7.0) Baso % (Auto) (0.1-1.2) % Neut # (Auto) (1.78-5.38) K/mm3 Lymph # (Auto) (1.32-3.57) K/mm3 [place] # (Auto) (0.30-0.82) K/mm3 Eos # (Auto) (0.04-0.54) K/mm3 Baso # (Auto) (0.01-0.08) K/mm3 Manual Slide Review VBG pH (7.30-7.40) Sodium 132 L (136-145) mEq/L Potassium 5.6 H (3.5-5.1) mEq/L Chloride 100 (98-107) mEq/L Carbon Dioxide 7 L* (21-32) mEq/L Anion Gap 30.6 H (5-15) BUN 15 (7-18) mg/dL Creatinine 1.5 H (0.7-1.3) mg/dL Est Cr Clr Drug Dosing 69.77 mL/min Estimated GFR (MDRD) 57 (>60) mL/min BUN/Creatinine Ratio 10.0 L (14-18) Glucose 187 H (74-106) mg/dL POC Glucose 284 H (70-105) mg/dL Hemoglobin A1c ( - 5.6) % Serum Osmolality (280-300) mosm/kg Calcium 8.1 L (8.5-10.1) mg/dL Total Bilirubin (0.2-1.0) mg/dL AST (15-37) U/L ALT (16-63) U/L Alkaline Phosphatase (46-116) U/L C-Reactive Protein (<1.0) mg/dL Total Protein (6.4-8.2) g/dl Albumin (3.4-5.0) g/dl Globulin gm/dL Albumin/Globulin Ratio (1-2) Lipase (73-393) U/L Ketones (0.0-0.3) mM SARS-CoV-2 RNA (DONTAE) Negative (NEGATIVE) Result Diagrams: 11/19/20 07:36 11/19/20 18:32 Sepsis Event Note - Evaluation Sepsis Screening Result: No Definite Risk - Focused Exam Vital Signs: Vital Signs Temp Pulse Pulse Resp BP Pulse Ox 11/19/20 12:00 36.8 C 108 H 20 140/79 100 11/19/20 10:09 36.8 C 111 H 16 155/61 H 100 11/19/20 09:50 144/85 H 11/19/20 09:40 171/90 H 11/19/20 09:30 153/71 H 11/19/20 09:20 156/70 H 11/19/20 09:10 147/88 H 11/19/20 09:00 132/112 H 11/19/20 06:42 36.9 C 126 H 20 160/92 H 100 Problem List Initiated/Reviewed/Updated: Yes Orders Last 24hrs: Active Orders 24 hr Category Date Time Status Admission Status [Patient Status] [ADT] Routine ADT 11/19/20 09:32 Active Blood Glucose Check, Bedside [RC] Q1HR Care 11/19/20 10:11 Active Height and Weight [RC] 04 Care 11/19/20 10:20 Active Intake and Output [RC] 04,16 Care 11/19/20 10:20 Active Oxygen Therapy [RC] PRN Care 11/19/20 10:20 Active Pulse Oximetry [RC] PRN Care 11/19/20 10:20 Active Up ad Christine [RC] ASDIRECTED Care 11/19/20 10:20 Active VTE/DVT Education [RC] BID Care 11/19/20 10:20 Active Vital Signs [RC] Q4HR Care 11/19/20 10:20 Active Consult to Diabetic Nurse Specialist [CONS] Routine Cons 11/19/20 10:20 Active Consult to Handle And Vent Machine Operator [CONS] Routine Cons 11/19/20 10:20 Active NPO Now [Nothing per Oral Now Diet] [DIET] Diet 11/19/20 Lunch Active BASIC METABOLIC PANEL,BMP [CHEM] Q4H Lab 11/19/20 15:00 Ordered BASIC METABOLIC PANEL,BMP [CHEM] Q4H Lab 11/19/20 19:00 Ordered BASIC METABOLIC PANEL,BMP [CHEM] Q4H Lab 11/19/20 23:00 Ordered BASIC METABOLIC PANEL,BMP [CHEM] Q4H Lab 11/20/20 03:00 Ordered CBC WITH AUTO DIFF [HEME] AM Lab 11/20/20 05:11 Ordered CBC WITH AUTO DIFF [HEME] AM Lab 11/21/20 05:11 Ordered CBC WITH AUTO DIFF [HEME] AM Lab 11/22/20 05:11 Ordered CBC WITH AUTO DIFF [HEME] AM Lab 11/23/20 05:11 Ordered Acetaminophen [TylenoL] Med 11/19/20 10:20 Active 650 mg PO Q4H PRN Dextrose 5% in Water 1,000 ml Med 11/19/20 12:15 Active IV ASDIRECTED Insulin Regular, Human [HumuLIN R] 100 unit Med 11/19/20 10:45 Active Sodium Chloride 0.9% [Normal Saline] 99 ml IV TITRATE Nicotine [Habitrol] Med 11/19/20 10:45 Active 14 mg TRDERM Q24H Ondansetron [Zofran] Med 11/19/20 10:20 Active 4 mg IV Q6H PRN Remove Patch Med 11/20/20 10:45 Active 0 ea TRDERM Q24H Sodium Bicarbonate [Sodium Bicarbonate 8.4%] 100 meq Med 11/19/20 12:30 Active Sodium Chloride 0.9% [Normal Saline] 1,000 ml IV Q10H Sodium Chloride 0.9% [Normal Saline] 1,000 ml Med 11/19/20 11:58 Active IV ONETIME Sodium Chloride 0.9% [Saline Flush] Med 11/19/20 07:09 Active 10 ml FLUSH ASDIRECTED PRN ED Antiemetic Medication Reflex [OM.PC] Stat Oth 11/19/20 07:10 Ordered Peripheral IV Insertion Adult [OM.PC] Stat Oth 11/19/20 07:09 Ordered Resuscitation Status Routine Resus Stat 11/19/20 10:20 Ordered Medication Orders Acetaminophen (Tylenol) 650 mg PO Q4H PRN PRN Reason: Pain (Mild 1-3)/fever Insulin Human Regular 100 unit (/ Sodium Chloride) 100 mls @ 9.29 mls/hr IV TITRATE JOSE; Protocol Last Titration: 11/19/20 12:12 Dose: 0.09 units/kg/hr, 8 mls/hr Documented by: TERESA Cosigned by: COLLIN Admin: 11/19/20 10:57 Dose: 0.05 units/kg/hr, 5 mls/hr Documented by: TERESA Cosigned by: COLLIN Sodium Chloride (Normal Saline) 1,000 mls @ 999 mls/hr IV ONETIME ONE Stop: 11/19/20 12:58 Dextrose/Water (Dextrose 5% In Water) 1,000 mls @ 250 mls/hr IV ASDIRECTED JOSE Sodium Bicarbonate 100 meq/ (Sodium Chloride) 1,100 mls @ 100 mls/hr IV Q10H JOSE Last Admin: 11/19/20 12:33 Dose: 100 mls/hr Documented by: TERESA Miscellaneous Information (Remove Patch) 0 ea TRDERM Q24H JOSE Nicotine (Habitrol) 14 mg TRDERM Q24H JOSE Last Admin: 11/19/20 10:47 Dose: 14 mg Documented by: TERESA Ondansetron HCl (Zofran) 4 mg IV Q6H PRN PRN Reason: Nausea/Vomiting Last Admin: 11/19/20 10:41 Dose: 4 mg Documented by: TERESA Sodium Chloride (Saline Flush) 10 ml FLUSH ASDIRECTED PRN PRN Reason: Keep Vein Open Last Admin: 11/19/20 07:57 Dose: 10 ml Documented by: ELENI Assessment/Plan Comment:: This is a 24 yo white male with past medical hx/o DM 1 and Nicotine Dependence who presented to ED with complaints of abdominal pain associated with nausea as well as vomiting and was diagnosed with DKA. Assessment: Acute: Diabetic Ketoacidosis with Serum ketones of 8.42 Acute Kidney Injury 2/2 Intravascular volume depletion Severe dehydration 2/2 Volume depletion Abdominal Pain with Nausea and Vomiting 2/2 DKA Leukocytosis with WBC of 22.76 and Neutrophils of 88.5% Pseudohyponatremia due to DKA Hypochloremia with Cl of 95 Increased AG Metabolic Acidosis with CO2 of 10--> now 7 Serum Hyperosmolality Elevated AST of 38 Elevated Alk Phos of 132 Medical non-adherence, ran out of insulin this past Thursday Nicotine dependence, counseled on smoking cessation, offered nicotine patch- patient refused Chronic: DM1 with most recent a1c of 8.5 Plan: Admit to ICU. DKA protocol. Aggressive volume resuscitation. Bicarb gtt. Serial BMP Q4H. NPO except ice chips and sips of water. PRN anti-emetic agents. Diabetic education. Goal of treatment is resolve AG. ADA once medically stable. DVT/GI prophylaxis. Possible discharge in AM. 2154: Most recent CO2 is 18 and AG is 15.8. He looks and feels much better. Continue current treatment. - Mortality Measure Prognosis:: Good
[2020-11-19] MEDS: Dextrose 5% in Water 1,000 ML IV SCH ×2 (16:19→23:00)
[2020-11-19] MEDS: Sodium Chloride 0.9% 1,000 ML IV SCH ×3 (16:42→23:46)
[2020-11-19] MEDS: Pantoprazole 40 MG Vial IVPUSH SCH (18:00)
[2020-11-19] MEDS ORDERED: 50% Dextrose in Water 50 ML Syringe ONE (22:07)
[2020-11-19] MEDS ORDERED: 50% Dextrose in Water 50 ML Syringe IVPUSH PRN (22:09)
[2020-11-20] MEDS ORDERED: Insulin Glarg,Human.Rec.Analog 100 Unit/ML SUBCUT STA (00:01)
[2020-11-20] MEDS ORDERED: Potassium Chloride 20 MEQ Tab.ER PO STA ×2 (00:03→12:31)
--- NOTE | 2020-11-20 05:31 | PCM.DCSUM1 ---
Discharge Summary - Hospital Course Brief History: This is a 24 yo white male with past medical hx/o DM 1 and Nicotine Dependence who presented to ED with complaints of abdominal pain associated with nausea as well as vomiting and was diagnosed with diabetic ketoacidosis. Diagnosis: Stroke: No Modified Iron Scale: No Symptoms at All Modified Kittson Scale Score: 0 - Discharge Data Discharge Date: 11/20/20 Discharge Disposition: Home, Self-Care 01 Condition: Good - Referral to Home Health Primary Care Physician: PCP None - Patient Summary/Data Operative Procedure(s) Performed: None Complications: None Consults: Consultations 11/19/20 10:20 Consult to Diabetic Nurse Specialist [CONS] Routine Consult to Professor Of Astronomy [CONS] Routine Labs Pending at D/C: None Hospital Course: Patient was admitted primary for diabetic ketoacidosis. He received initial treatment in ED and was put on DKA protocol as soon as he was transferred to the unit. Overnight his AG resolved and in the morning he was switched to a new insulin regimen with a LA twice a day and ISS with each meal. His hospital course was uncomplicated. Once medically stable, he was immediately sent home from the facility. On the day of discharge, he was educated about the importance of medical and dietary compliance. He was advised to follow up his PCP in 1-2 weeks after discharge. - Patient Instructions Diet: Usual Diet as Tolerated, Diabetic Diet Activity: As Tolerated Driving: Do Not Drive Showering/Bathing: May Shower Notify Provider of: Fever, Increased Pain, Nausea and/or Vomiting - Discharge Plan *PRESCRIPTION DRUG MONITORING PROGRAM REVIEWED*: Not Applicable *COPY OF PRESCRIPTION DRUG MONITORING REPORT IN PATIENT GIACOMO: Not Applicable Prescriptions/Med Rec: Insulin Aspart [Insulin Aspart Flexpen] See Protocol SQ TIDPC PRN #1 insuln.pen PRN Reason: Hyperglycemia Insulin Glarg,Human.Rec.Analog [LantUS] 25 unit SQ BID #1 ml Home Medications: Home Meds Ondansetron [Zofran Odt] 8 mg PO Q6H PRN #8 tab.rapdis 11/18/20 [Rx] Insulin Aspart [Insulin Aspart Flexpen] See Protocol SQ TIDPC PRN #1 insuln.pen 11/20/20 [Rx] Insulin Glarg,Human.Rec.Analog [LantUS] 25 unit SQ BID #1 ml 11/20/20 [Rx] Oxygen Therapy Mode: Room Air Patient Handouts: Steps to Quit Smoking, [id number], Diabetic Ketoacidosis, Preventing Diabetic Ketoacidosis Referrals: Harris Marie NP [Nurse Practitioner] - 11/26/20 1:00 pm (Please follow up with Kb Orozco NP on Nov 26 at 1pm. Please check in at 12:30.) - Discharge Summary/Plan Comment DC Time >30 min.: No Discharge Summary/Plan Comment: Discharge to home. He was counseled on smoking cessation but he was not ready to quit and refused nicotine patch. - General Info Date of Service: 11/20/20 Admission Dx/Problem (Free Text: Admission Diagnosis/Problem Admission Diagnosis/Problem Diabetic ketoacidosis Subjective Update: No overnight or acute issues. He is now clinically stable. Functional Status: Reports: Pain Controlled, Tolerating Diet, Ambulating, Urinating. Denies: New Symptoms - Review of Systems General: Denies: Fever, Weakness, Fatigue, Malaise, Chills HEENT: Denies: Headaches Pulmonary: Denies: Shortness of Breath, Cough Cardiovascular: Denies: Chest Pain Gastrointestinal: Denies: Abdominal Pain, Diarrhea, Nausea, Vomiting Genitourinary: Denies: Frequency Musculoskeletal: Denies: Joint Pain Skin: Denies: Bruising, Pruritis, Rash Neurological: Denies: Confusion, Difficulty Walking, Weakness, Gait Disturbance Psychiatric: Denies: Depression, Anxiety, Hallucinations - Patient Data Vitals - Most Recent: Last Vital Signs Temp 37.3 C 11/20/20 00:00 Pulse 89 11/19/20 20:00 Resp 14 11/20/20 00:00 BP 136/65 11/20/20 00:00 Pulse Ox 100 11/20/20 00:00 Weight - Most Recent: 92.896 kg I&O - Last 24 hours: Intake & Output 11/19/20 11/19/20 11/20/20 14:59 22:59 06:59 Intake Total 1999 1396 1979 Output Total 1350 2300 1300 Balance 650 -862 674 Lab Results - Last 24 hrs: Laboratory Results - last 24 hr 11/19/20 11/19/20 11/19/20 Range/Units 06:39 07:36 07:36 WBC 22.76 H (4.23-9.07) K/mm3 RBC 4.86 (4.63-6.08) M/mm3 Hgb 15.9 (13.7-17.5) gm/dl Hct 49.6 (40.1-51.0) % MCV 102.1 H D (79.0-92.2) fl MCH 32.7 H (25.7-32.2) pg MCHC 32.1 L (32.2-35.5) g/dl RDW Std Deviation 46.6 H (35.1-43.9) fL Plt Count 325 (163-337) K/mm3 MPV 9.8 (9.4-12.3) fl Neut % (Auto) 88.5 H (34.0-67.9) % Lymph % (Auto) 4.8 L (21.8-53.1) % Gaines % (Auto) 6.3 (5.3-12.2) % Eos % (Auto) 0 L (0.8-7.0) Baso % (Auto) 0.0 L (0.1-1.2) % Neut # (Auto) 20.12 H (1.78-5.38) K/mm3 Lymph # (Auto) 1.09 L (1.32-3.57) K/mm3 Gaines # (Auto) 1.44 H (0.30-0.82) K/mm3 Eos # (Auto) 0.00 L (0.04-0.54) K/mm3 Baso # (Auto) 0.01 (0.01-0.08) K/mm3 Manual Slide Review Abnormal smear VBG pH (7.30-7.40) Sodium 133 L (136-145) mEq/L Potassium 5.1 (3.5-5.1) mEq/L Chloride 95 L (98-107) mEq/L Carbon Dioxide 10 L (21-32) mEq/L Anion Gap 33.1 H (5-15) BUN 17 (7-18) mg/dL Creatinine 1.7 H (0.7-1.3) mg/dL Est Cr Clr Drug Dosing 61.56 mL/min Estimated GFR (MDRD) 49 (>60) mL/min BUN/Creatinine Ratio 10.0 L (14-18) Glucose 293 H (74-106) mg/dL POC Glucose 361 H (70-105) mg/dL Hemoglobin A1c ( - 5.6) % Serum Osmolality 313 H (280-300) mosm/kg Calcium 8.5 (8.5-10.1) mg/dL Total Bilirubin 0.6 (0.2-1.0) mg/dL AST 38 H (15-37) U/L ALT 57 (16-63) U/L Alkaline Phosphatase 132 H (46-116) U/L C-Reactive Protein < 0.2 (<1.0) mg/dL Total Protein 9.0 H (6.4-8.2) g/dl Albumin 5.0 (3.4-5.0) g/dl Globulin 4.0 gm/dL Albumin/Globulin Ratio 1.3 (1-2) Lipase 41 L (73-393) U/L Urine Color (Yellow) Urine Appearance (Clear) Urine pH (5.0-8.0) Ur Specific Leon (1.005-1.030) Urine Protein (Negative) Urine Glucose (UA) (Negative) Urine Ketones (Negative) Urine Occult Blood (Negative) Urine Nitrite (Negative) Urine Bilirubin (Negative) Urine Urobilinogen (0.2-1.0) Ur Leukocyte Esterase (Negative) Urine RBC (0-5) /hpf Urine WBC (0-5) /hpf Ur Squamous Epith Cells (0-5) /hpf Urine Bacteria (FEW) /hpf Urine Mucus (FEW) /hpf Ketones (0.0-0.3) mM SARS-CoV-2 RNA (DONTAE) (NEGATIVE) 11/19/20 11/19/20 11/19/20 Range/Units 07:36 07:36 07:45 WBC (4.23-9.07) K/mm3 RBC (4.63-6.08) M/mm3 Hgb (13.7-17.5) gm/dl Hct (40.1-51.0) % MCV (79.0-92.2) fl MCH (25.7-32.2) pg MCHC (32.2-35.5) g/dl RDW Std Deviation (35.1-43.9) fL Plt Count (163-337) K/mm3 MPV (9.4-12.3) fl Neut % (Auto) (34.0-67.9) % Lymph % (Auto) (21.8-53.1) % Gaines % (Auto) (5.3-12.2) % Eos % (Auto) (0.8-7.0) Baso % (Auto) (0.1-1.2) % Neut # (Auto) (1.78-5.38) K/mm3 Lymph # (Auto) (1.32-3.57) K/mm3 Gaines # (Auto) (0.30-0.82) K/mm3 Eos # (Auto) (0.04-0.54) K/mm3 Baso # (Auto) (0.01-0.08) K/mm3 Manual Slide Review VBG pH 7.01 L (7.30-7.40) Sodium (136-145) mEq/L Potassium (3.5-5.1) mEq/L Chloride (98-107) mEq/L Carbon Dioxide (21-32) mEq/L Anion Gap (5-15) BUN (7-18) mg/dL Creatinine (0.7-1.3) mg/dL Est Cr Clr Drug Dosing mL/min Estimated GFR (MDRD) (>60) mL/min BUN/Creatinine Ratio (14-18) Glucose (74-106) mg/dL POC Glucose (70-105) mg/dL Hemoglobin A1c 8.5 H ( - 5.6) % Serum Osmolality (280-300) mosm/kg Calcium (8.5-10.1) mg/dL Total Bilirubin (0.2-1.0) mg/dL AST (15-37) U/L ALT (16-63) U/L Alkaline Phosphatase (46-116) U/L C-Reactive Protein (<1.0) mg/dL Total Protein (6.4-8.2) g/dl Albumin (3.4-5.0) g/dl Globulin gm/dL Albumin/Globulin Ratio (1-2) Lipase (73-393) U/L Urine Color (Yellow) Urine Appearance (Clear) Urine pH (5.0-8.0) Ur Specific Leon (1.005-1.030) Urine Protein (Negative) Urine Glucose (UA) (Negative) Urine Ketones (Negative) Urine Occult Blood (Negative) Urine Nitrite (Negative) Urine Bilirubin (Negative) Urine Urobilinogen (0.2-1.0) Ur Leukocyte Esterase (Negative) Urine RBC (0-5) /hpf Urine WBC (0-5) /hpf Ur Squamous Epith Cells (0-5) /hpf Urine Bacteria (FEW) /hpf Urine Mucus (FEW) /hpf Ketones 8.42 (0.0-0.3) mM SARS-CoV-2 RNA (DONTAE) (NEGATIVE) 11/19/20 11/19/20 11/19/20 Range/Units 07:49 09:00 10:10 WBC (4.23-9.07) K/mm3 RBC (4.63-6.08) M/mm3 Hgb (13.7-17.5) gm/dl Hct (40.1-51.0) % MCV (79.0-92.2) fl MCH (25.7-32.2) pg MCHC (32.2-35.5) g/dl RDW Std Deviation (35.1-43.9) fL Plt Count (163-337) K/mm3 MPV (9.4-12.3) fl Neut % (Auto) (34.0-67.9) % Lymph % (Auto) (21.8-53.1) % Gaines % (Auto) (5.3-12.2) % Eos % (Auto) (0.8-7.0) Baso % (Auto) (0.1-1.2) % Neut # (Auto) (1.78-5.38) K/mm3 Lymph # (Auto) (1.32-3.57) K/mm3 Gaines # (Auto) (0.30-0.82) K/mm3 Eos # (Auto) (0.04-0.54) K/mm3 Baso # (Auto) (0.01-0.08) K/mm3 Manual Slide Review VBG pH (7.30-7.40) Sodium (136-145) mEq/L Potassium (3.5-5.1) mEq/L Chloride (98-107) mEq/L Carbon Dioxide (21-32) mEq/L Anion Gap (5-15) BUN (7-18) mg/dL Creatinine (0.7-1.3) mg/dL Est Cr Clr Drug Dosing mL/min Estimated GFR (MDRD) (>60) mL/min BUN/Creatinine Ratio (14-18) Glucose (74-106) mg/dL POC Glucose 284 H 188 H (70-105) mg/dL Hemoglobin A1c ( - 5.6) % Serum Osmolality (280-300) mosm/kg Calcium (8.5-10.1) mg/dL Total Bilirubin (0.2-1.0) mg/dL AST (15-37) U/L ALT (16-63) U/L Alkaline Phosphatase (46-116) U/L C-Reactive Protein (<1.0) mg/dL Total Protein (6.4-8.2) g/dl Albumin (3.4-5.0) g/dl Globulin gm/dL Albumin/Globulin Ratio (1-2) Lipase (73-393) U/L Urine Color (Yellow) Urine Appearance (Clear) Urine pH (5.0-8.0) Ur Specific Leon (1.005-1.030) Urine Protein (Negative) Urine Glucose (UA) (Negative) Urine Ketones (Negative) Urine Occult Blood (Negative) Urine Nitrite (Negative) Urine Bilirubin (Negative) Urine Urobilinogen (0.2-1.0) Ur Leukocyte Esterase (Negative) Urine RBC (0-5) /hpf Urine WBC (0-5) /hpf Ur Squamous Epith Cells (0-5) /hpf Urine Bacteria (FEW) /hpf Urine Mucus (FEW) /hpf Ketones (0.0-0.3) mM SARS-CoV-2 RNA (DONTAE) Negative (NEGATIVE) 11/19/20 11/19/20 11/19/20 Range/Units 10:50 11:14 11:56 WBC (4.23-9.07) K/mm3 RBC (4.63-6.08) M/mm3 Hgb (13.7-17.5) gm/dl Hct (40.1-51.0) % MCV (79.0-92.2) fl MCH (25.7-32.2) pg MCHC (32.2-35.5) g/dl RDW Std Deviation (35.1-43.9) fL Plt Count (163-337) K/mm3 MPV (9.4-12.3) fl Neut % (Auto) (34.0-67.9) % Lymph % (Auto) (21.8-53.1) % Gaines % (Auto) (5.3-12.2) % Eos % (Auto) (0.8-7.0) Baso % (Auto) (0.1-1.2) % Neut # (Auto) (1.78-5.38) K/mm3 Lymph # (Auto) (1.32-3.57) K/mm3 Gaines # (Auto) (0.30-0.82) K/mm3 Eos # (Auto) (0.04-0.54) K/mm3 Baso # (Auto) (0.01-0.08) K/mm3 Manual Slide Review VBG pH (7.30-7.40) Sodium 132 L (136-145) mEq/L Potassium 5.6 H (3.5-5.1) mEq/L Chloride 100 (98-107) mEq/L Carbon Dioxide 7 L* (21-32) mEq/L Anion Gap 30.6 H (5-15) BUN 15 (7-18) mg/dL Creatinine 1.5 H (0.7-1.3) mg/dL Est Cr Clr Drug Dosing 69.77 mL/min Estimated GFR (MDRD) 57 (>60) mL/min BUN/Creatinine Ratio 10.0 L (14-18) Glucose 187 H (74-106) mg/dL POC Glucose 170 H 160 H (70-105) mg/dL Hemoglobin A1c ( - 5.6) % Serum Osmolality (280-300) mosm/kg Calcium 8.1 L (8.5-10.1) mg/dL Total Bilirubin (0.2-1.0) mg/dL AST (15-37) U/L ALT (16-63) U/L Alkaline Phosphatase (46-116) U/L C-Reactive Protein (<1.0) mg/dL Total Protein (6.4-8.2) g/dl Albumin (3.4-5.0) g/dl Globulin gm/dL Albumin/Globulin Ratio (1-2) Lipase (73-393) U/L Urine Color (Yellow) Urine Appearance (Clear) Urine pH (5.0-8.0) Ur Specific Leon (1.005-1.030) Urine Protein (Negative) Urine Glucose (UA) (Negative) Urine Ketones (Negative) Urine Occult Blood (Negative) Urine Nitrite (Negative) Urine Bilirubin (Negative) Urine Urobilinogen (0.2-1.0) Ur Leukocyte Esterase (Negative) Urine RBC (0-5) /hpf Urine WBC (0-5) /hpf Ur Squamous Epith Cells (0-5) /hpf Urine Bacteria (FEW) /hpf Urine Mucus (FEW) /hpf Ketones (0.0-0.3) mM SARS-CoV-2 RNA (DONTAE) (NEGATIVE) 11/19/20 11/19/20 11/19/20 Range/Units 13:06 13:52 14:55 WBC (4.23-9.07) K/mm3 RBC (4.63-6.08) M/mm3 Hgb (13.7-17.5) gm/dl Hct (40.1-51.0) % MCV (79.0-92.2) fl MCH (25.7-32.2) pg MCHC (32.2-35.5) g/dl RDW Std Deviation (35.1-43.9) fL Plt Count (163-337) K/mm3 MPV (9.4-12.3) fl Neut % (Auto) (34.0-67.9) % Lymph % (Auto) (21.8-53.1) % Gaines % (Auto) (5.3-12.2) % Eos % (Auto) (0.8-7.0) Baso % (Auto) (0.1-1.2) % Neut # (Auto) (1.78-5.38) K/mm3 Lymph # (Auto) (1.32-3.57) K/mm3 Gaines # (Auto) (0.30-0.82) K/mm3 Eos # (Auto) (0.04-0.54) K/mm3 Baso # (Auto) (0.01-0.08) K/mm3 Manual Slide Review VBG pH (7.30-7.40) Sodium 135 L (136-145) mEq/L Potassium 4.1 D (3.5-5.1) mEq/L Chloride 105 (98-107) mEq/L Carbon Dioxide 15 L (21-32) mEq/L Anion Gap 19.1 H (5-15) BUN 12 (7-18) mg/dL Creatinine 1.3 (0.7-1.3) mg/dL Est Cr Clr Drug Dosing 80.51 mL/min Estimated GFR (MDRD) > 60 (>60) mL/min BUN/Creatinine Ratio 9.2 L (14-18) Glucose 156 H (74-106) mg/dL POC Glucose 144 H 146 H (70-105) mg/dL Hemoglobin A1c ( - 5.6) % Serum Osmolality (280-300) mosm/kg Calcium 7.7 L (8.5-10.1) mg/dL Total Bilirubin (0.2-1.0) mg/dL AST (15-37) U/L ALT (16-63) U/L Alkaline Phosphatase (46-116) U/L C-Reactive Protein (<1.0) mg/dL Total Protein (6.4-8.2) g/dl Albumin (3.4-5.0) g/dl Globulin gm/dL Albumin/Globulin Ratio (1-2) Lipase (73-393) U/L Urine Color (Yellow) Urine Appearance (Clear) Urine pH (5.0-8.0) Ur Specific Leon (1.005-1.030) Urine Protein (Negative) Urine Glucose (UA) (Negative) Urine Ketones (Negative) Urine Occult Blood (Negative) Urine Nitrite (Negative) Urine Bilirubin (Negative) Urine Urobilinogen (0.2-1.0) Ur Leukocyte Esterase (Negative) Urine RBC (0-5) /hpf Urine WBC (0-5) /hpf Ur Squamous Epith Cells (0-5) /hpf Urine Bacteria (FEW) /hpf Urine Mucus (FEW) /hpf Ketones (0.0-0.3) mM SARS-CoV-2 RNA (DONTAE) (NEGATIVE) 11/19/20 11/19/20 11/19/20 Range/Units 14:57 16:00 16:40 WBC (4.23-9.07) K/mm3 RBC (4.63-6.08) M/mm3 Hgb (13.7-17.5) gm/dl Hct (40.1-51.0) % MCV (79.0-92.2) fl MCH (25.7-32.2) pg MCHC (32.2-35.5) g/dl RDW Std Deviation (35.1-43.9) fL Plt Count (163-337) K/mm3 MPV (9.4-12.3) fl Neut % (Auto) (34.0-67.9) % Lymph % (Auto) (21.8-53.1) % Gaines % (Auto) (5.3-12.2) % Eos % (Auto) (0.8-7.0) Baso % (Auto) (0.1-1.2) % Neut # (Auto) (1.78-5.38) K/mm3 Lymph # (Auto) (1.32-3.57) K/mm3 Gaines # (Auto) (0.30-0.82) K/mm3 Eos # (Auto) (0.04-0.54) K/mm3 Baso # (Auto) (0.01-0.08) K/mm3 Manual Slide Review VBG pH (7.30-7.40) Sodium (136-145) mEq/L Potassium (3.5-5.1) mEq/L Chloride (98-107) mEq/L Carbon Dioxide (21-32) mEq/L Anion Gap (5-15) BUN (7-18) mg/dL Creatinine (0.7-1.3) mg/dL Est Cr Clr Drug Dosing mL/min Estimated GFR (MDRD) (>60) mL/min BUN/Creatinine Ratio (14-18) Glucose (74-106) mg/dL POC Glucose 145 H 145 H (70-105) mg/dL Hemoglobin A1c ( - 5.6) % Serum Osmolality (280-300) mosm/kg Calcium (8.5-10.1) mg/dL Total Bilirubin (0.2-1.0) mg/dL AST (15-37) U/L ALT (16-63) U/L Alkaline Phosphatase (46-116) U/L C-Reactive Protein (<1.0) mg/dL Total Protein (6.4-8.2) g/dl Albumin (3.4-5.0) g/dl Globulin gm/dL Albumin/Globulin Ratio (1-2) Lipase (73-393) U/L Urine Color Light yellow (Yellow) Urine Appearance Clear (Clear) Urine pH 6.0 (5.0-8.0) Ur Specific Leon 1.015 (1.005-1.030) Urine Protein Negative (Negative) Urine Glucose (UA) Trace H (Negative) Urine Ketones 1+ H (Negative) Urine Occult Blood Trace-intact H (Negative) Urine Nitrite Negative (Negative) Urine Bilirubin Negative (Negative) Urine Urobilinogen 0.2 (0.2-1.0) Ur Leukocyte Esterase Negative (Negative) Urine RBC 0-5 (0-5) /hpf Urine WBC 0-5 (0-5) /hpf Ur Squamous Epith Cells Not seen (0-5) /hpf Urine Bacteria Occasional (FEW) /hpf Urine Mucus Not seen (FEW) /hpf Ketones (0.0-0.3) mM SARS-CoV-2 RNA (DONTAE) (NEGATIVE) 11/19/20 11/19/20 11/19/20 Range/Units 17:08 18:01 18:32 WBC (4.23-9.07) K/mm3 RBC (4.63-6.08) M/mm3 Hgb (13.7-17.5) gm/dl Hct (40.1-51.0) % MCV (79.0-92.2) fl MCH (25.7-32.2) pg MCHC (32.2-35.5) g/dl RDW Std Deviation (35.1-43.9) fL Plt Count (163-337) K/mm3 MPV (9.4-12.3) fl Neut % (Auto) (34.0-67.9) % Lymph % (Auto) (21.8-53.1) % Gaines % (Auto) (5.3-12.2) % Eos % (Auto) (0.8-7.0) Baso % (Auto) (0.1-1.2) % Neut # (Auto) (1.78-5.38) K/mm3 Lymph # (Auto) (1.32-3.57) K/mm3 Gaines # (Auto) (0.30-0.82) K/mm3 Eos # (Auto) (0.04-0.54) K/mm3 Baso # (Auto) (0.01-0.08) K/mm3 Manual Slide Review VBG pH (7.30-7.40) Sodium 137 (136-145) mEq/L Potassium 3.8 (3.5-5.1) mEq/L Chloride 107 (98-107) mEq/L Carbon Dioxide 18 L (21-32) mEq/L Anion Gap 15.8 H (5-15) BUN 9 (7-18) mg/dL Creatinine 1.3 (0.7-1.3) mg/dL Est Cr Clr Drug Dosing 80.51 mL/min Estimated GFR (MDRD) > 60 (>60) mL/min BUN/Creatinine Ratio 6.9 L (14-18) Glucose 125 H (74-106) mg/dL POC Glucose 117 H 127 H (70-105) mg/dL Hemoglobin A1c ( - 5.6) % Serum Osmolality (280-300) mosm/kg Calcium 7.9 L (8.5-10.1) mg/dL Total Bilirubin (0.2-1.0) mg/dL AST (15-37) U/L ALT (16-63) U/L Alkaline Phosphatase (46-116) U/L C-Reactive Protein (<1.0) mg/dL Total Protein (6.4-8.2) g/dl Albumin (3.4-5.0) g/dl Globulin gm/dL Albumin/Globulin Ratio (1-2) Lipase (73-393) U/L Urine Color (Yellow) Urine Appearance (Clear) Urine pH (5.0-8.0) Ur Specific Leon (1.005-1.030) Urine Protein (Negative) Urine Glucose (UA) (Negative) Urine Ketones (Negative) Urine Occult Blood (Negative) Urine Nitrite (Negative) Urine Bilirubin (Negative) Urine Urobilinogen (0.2-1.0) Ur Leukocyte Esterase (Negative) Urine RBC (0-5) /hpf Urine WBC (0-5) /hpf Ur Squamous Epith Cells (0-5) /hpf Urine Bacteria (FEW) /hpf Urine Mucus (FEW) /hpf Ketones (0.0-0.3) mM SARS-CoV-2 RNA (DONTAE) (NEGATIVE) 11/19/20 11/19/20 Range/Units 19:12 23:06 WBC (4.23-9.07) K/mm3 RBC (4.63-6.08) M/mm3 Hgb (13.7-17.5) gm/dl Hct (40.1-51.0) % MCV (79.0-92.2) fl MCH (25.7-32.2) pg MCHC (32.2-35.5) g/dl RDW Std Deviation (35.1-43.9) fL Plt Count (163-337) K/mm3 MPV (9.4-12.3) fl Neut % (Auto) (34.0-67.9) % Lymph % (Auto) (21.8-53.1) % Gaines % (Auto) (5.3-12.2) % Eos % (Auto) (0.8-7.0) Baso % (Auto) (0.1-1.2) % Neut # (Auto) (1.78-5.38) K/mm3 Lymph # (Auto) (1.32-3.57) K/mm3 Gaines # (Auto) (0.30-0.82) K/mm3 Eos # (Auto) (0.04-0.54) K/mm3 Baso # (Auto) (0.01-0.08) K/mm3 Manual Slide Review VBG pH (7.30-7.40) Sodium 137 (136-145) mEq/L Potassium 3.2 L (3.5-5.1) mEq/L Chloride 106 (98-107) mEq/L Carbon Dioxide 20 L (21-32) mEq/L Anion Gap 14.2 (5-15) BUN 8 (7-18) mg/dL Creatinine 1.2 (0.7-1.3) mg/dL Est Cr Clr Drug Dosing 87.22 mL/min Estimated GFR (MDRD) > 60 (>60) mL/min BUN/Creatinine Ratio 6.7 L (14-18) Glucose 118 H (74-106) mg/dL POC Glucose 121 H (70-105) mg/dL Hemoglobin A1c ( - 5.6) % Serum Osmolality (280-300) mosm/kg Calcium 7.8 L (8.5-10.1) mg/dL Total Bilirubin (0.2-1.0) mg/dL AST (15-37) U/L ALT (16-63) U/L Alkaline Phosphatase (46-116) U/L C-Reactive Protein (<1.0) mg/dL Total Protein (6.4-8.2) g/dl Albumin (3.4-5.0) g/dl Globulin gm/dL Albumin/Globulin Ratio (1-2) Lipase (73-393) U/L Urine Color (Yellow) Urine Appearance (Clear) Urine pH (5.0-8.0) Ur Specific Leon (1.005-1.030) Urine Protein (Negative) Urine Glucose (UA) (Negative) Urine Ketones (Negative) Urine Occult Blood (Negative) Urine Nitrite (Negative) Urine Bilirubin (Negative) Urine Urobilinogen (0.2-1.0) Ur Leukocyte Esterase (Negative) Urine RBC (0-5) /hpf Urine WBC (0-5) /hpf Ur Squamous Epith Cells (0-5) /hpf Urine Bacteria (FEW) /hpf Urine Mucus (FEW) /hpf Ketones (0.0-0.3) mM SARS-CoV-2 RNA (DONTAE) (NEGATIVE) Med Orders - Current: Current Medications Acetaminophen (Tylenol) 650 mg PO Q4H PRN PRN Reason: Pain (Mild 1-3)/fever Dextrose/Water (Dextrose 50% In Water) 50 ml IVPUSH ASDIRECTED PRN PRN Reason: Blood Glucose Last Admin: 11/19/20 22:17 Dose: 50 ml Documented by: Insulin Human Regular 100 unit (/ Sodium Chloride) 100 mls @ 9.29 mls/hr IV TITRATE JOSE; Protocol Last Admin: 11/19/20 22:44 Dose: 0.05 units/kg/hr, 5 mls/hr Documented by: Dextrose/Water (Dextrose 5% In Water) 1,000 mls @ 250 mls/hr IV ASDIRECTED JOSE Last Admin: 11/19/20 23:00 Dose: 350 mls/hr Documented by: Sodium Bicarbonate 100 meq/ (Sodium Chloride) 1,100 mls @ 100 mls/hr IV Q10H JOSE Last Admin: 11/19/20 22:19 Dose: 100 mls/hr Documented by: Sodium Chloride (Normal Saline) 1,000 mls @ 300 mls/hr IV ASDIRECTED JOSE Last Admin: 11/19/20 23:46 Dose: 300 mls/hr Documented by: Insulin Glargine (Lantus) 15 unit SUBCUT BIDAC JOSE Insulin Human Lispro (Humalog) 0 unit SUBCUT TIDPC JOSE; Protocol Miscellaneous Information (Remove Patch) 0 ea TRDERM Q24H JOSE Nicotine (Habitrol) 14 mg TRDERM Q24H JOSE Last Admin: 11/19/20 10:47 Dose: 14 mg Documented by: Ondansetron HCl (Zofran) 4 mg IV Q6H PRN PRN Reason: Nausea/Vomiting Last Admin: 11/19/20 10:41 Dose: 4 mg Documented by: Pantoprazole Sodium (Protonix Iv) 40 mg IVPUSH DAILY [facility] Last Admin: 11/19/20 18:00 Dose: 40 mg Documented by: Sodium Chloride (Saline Flush) 10 ml FLUSH ASDIRECTED PRN PRN Reason: Keep Vein Open Last Admin: 11/19/20 07:57 Dose: 10 ml Documented by: Discontinued Medications Dextrose/Water (Dextrose 50% In Water) Confirm Administered Dose 50 ml .ROUTE .STK-MED ONE Stop: 11/19/20 22:08 Hydromorphone HCl (Dilaudid) 0.5 mg IVPUSH ONETIME ONE Stop: 11/19/20 07:12 Last Admin: 11/19/20 07:41 Dose: 0.5 mg Documented by: Sodium Chloride (Normal Saline) 1,000 mls @ 1,000 mls/hr IV .BOLUS [facility] Last Admin: 11/19/20 07:41 Dose: 1,000 mls/hr Documented by: Lactated Ringer's (Ringers, Lactated) 1,000 mls @ 1,000 mls/hr IV .BOLUS ONE Stop: 11/19/20 09:25 Last Admin: 11/19/20 08:43 Dose: 1,000 mls/hr Documented by: Lactated Ringer's (Ringers, Lactated) 1,000 mls @ 999 mls/hr IV .BOLUS ONE Stop: 11/19/20 11:24 Last Admin: 11/19/20 10:40 Dose: 999 mls/hr Documented by: Sodium Chloride (Normal Saline) 1,000 mls @ 999 mls/hr IV ONETIME ONE Stop: 11/19/20 11:32 Last Admin: 11/19/20 10:44 Dose: 999 mls/hr Documented by: Dextrose/Water (Dextrose 5% In Water) 1,000 mls @ 150 mls/hr IV ASDIRECTED [facility] Last Admin: 11/19/20 12:04 Dose: 250 mls/hr Documented by: Sodium Chloride (Normal Saline) 1,000 mls @ 999 mls/hr IV ONETIME ONE Stop: 11/19/20 12:58 Last Admin: 11/19/20 12:46 Dose: 999 mls/hr Documented by: Sodium Bicarbonate 100 meq/ (Sodium Chloride) 1,100 mls @ 100 mls/hr IV ASDIRECTED [facility] Sodium Bicarbonate 100 meq/ (Sodium Chloride) 1,100 mls @ 100 mls/hr IV Q10H [facility] Stop: 11/20/20 08:14 Sodium Bicarbonate 100 meq/ (Sodium Chloride) 1,100 mls @ 100 mls/hr IV Q10H [facility] Stop: 11/20/20 08:14 Last Admin: 11/19/20 13:26 Dose: Not Given Documented by: Sodium Bicarbonate 100 meq/ (Sodium Chloride) 1,100 mls @ 100 mls/hr IV Q10H [facility] Insulin Glargine (Lantus) 25 unit SUBCUT NOW STA Stop: 11/20/20 00:02 Last Admin: 11/20/20 00:28 Dose: 25 unit Documented by: Metoclopramide HCl (Reglan) 10 mg IVPUSH ONETIME ONE Stop: 11/19/20 08:54 Last Admin: 11/19/20 08:57 Dose: 10 mg Documented by: Ondansetron HCl (Zofran) 4 mg IVPUSH ONETIME ONE Stop: 11/19/20 07:10 Last Admin: 11/19/20 07:39 Dose: 4 mg Documented by: Potassium Chloride (Klor-Con M20) 60 meq PO ASDIRECTED STA Stop: 11/20/20 00:04 Last Admin: 11/20/20 00:28 Dose: 60 meq Documented by: - Exam Quality Assessment: Denies: Supplemental Oxygen General: Reports: Alert, Oriented, Cooperative, No Acute Distress HEENT: Reports: Pupils Equal, Pupils Reactive, EOMI, Mucous Membr. Moist/[place] Neck: Reports: Supple Lungs: Reports: Clear to Auscultation, Normal Respiratory Effort Cardiovascular: Reports: Regular Rate, Regular Rhythm GI/Abdominal Exam: Normal Bowel Sounds, Soft, Non-Tender, No Organomegaly, No Distention, No Abnormal Bruit (Male) Exam: Deferred Rectal (Males) Exam: Deferred Back Exam: Reports: Normal Inspection, Full Range of Motion Extremities: Normal Inspection, Normal Range of Motion, Non-Tender, No Pedal Edema, Normal Capillary Refill Skin: Reports: Warm, Dry, Intact Neurological: Reports: No New Focal Deficit, Normal Gait Psy/Mental Status: Reports: Alert, Normal Affect, Normal Mood
[2020-11-20] MEDS ORDERED: Insulin Glarg,Human.Rec.Analog 100 Unit/ML SUBCUT SCH ×2 (06:00)
[2020-11-20] MEDS ORDERED: Phosphorus #1 250 MG Tab PO ONE (06:53)
--- NOTE | 2020-11-20 07:19 | PCM.SN.2 ---
- Free Text/Narrative Note: His AG resolved last night. However he did not tolerate his diet last night. He re-GAPed on his repeat BMP this AM. Plan: resume insulin gtt and D5 fluids at 100 cc/hr. Give his LA insulin and start ADA diet as tolerated. We will repeat BMP at about [id number]. If his AG resolves and clinically stable, I expect discharge in the afternoon.
[2020-11-20] MEDS: Pantoprazole 40 MG Vial IVPUSH SCH (08:12)
[2020-11-20] MEDS: Nicotine 14 MG/24 Hr Patch TRDERM SCH (10:24)
[2020-11-21] MEDS ORDERED: Pantoprazole 40 MG Tab.CR PO SCH (07:00)
== END 2020-11-20 14:15 | disposition home or self-care (01) | DRG 638 ==
LOC: JD.ED 06:27 → JD.ICU 09:32
PROVIDERS: ADMIT Internal Medicine; ATTEND Internal Medicine
DX: E10.10 Type 1 diabetes mellitus with ketoacidosis without coma (principal); N17.9 Acute kidney failure, unspecified; E87.0 Hyperosmolality and hypernatremia; E66.9 Obesity, unspecified; F17.210 Nicotine dependence, cigarettes, uncomplicated; E86.0 Dehydration; Z91.19 Patient's noncompliance with other medical treatment and regimen; E87.8 Other disorders of electrolyte and fluid balance, not elsewhere classified; Z68.33 Body mass index [BMI] 33.0-33.9, adult; Z20.822 Contact with and (suspected) exposure to COVID-19
CPT/HCPCS: 36415; 80048; 80053; 81001; 82009; 82800; 82962; 83036; 83690; 83930; 84100; 85025; 86140; 96374; 96375; 99221; 99238; 99284; 99284-25; A9270-GY; C9113; J1170; J1815-GY; J2405; J2765; J7030; J7060; J7120; U0002